=== PATIENT | female | born 1965 | race Caucasian/White ===

== ENCOUNTER → 2019-06-26 12:26 | Outpatient (CLI) | payer BC ==
[2012-05-26 15:19] VITALS: BMI 24.7
== END | disposition home or self-care (01) ==
LOC: D.RAD 12:26
PROVIDERS: ATTEND Nurse Practitioner Family
DX: R05 Cough (principal)

== ENCOUNTER → 2020-07-14 13:11 | Outpatient (CLI) | payer BC ==
[2012-05-26 15:19] VITALS: BMI 24.7
== END | disposition home or self-care (01) ==
LOC: D.RAD 13:11
PROVIDERS: ATTEND Nurse Practitioner Family
DX: S73.101A Unspecified sprain of right hip, initial encounter (principal)